=== PATIENT | male | born 1965 | race Caucasian/White ===

== ENCOUNTER 2017-01-25 06:13 | Day surgery (SDC) | payer OTHER ==
[~2017-01-25] VITALS: Ht 172.7 cm; Wt 60.3 kg
[2017-01-25] VITALS (18 sets, daily range): BP systolic 93–133; BP diastolic 54–68; PULSE 50–63; RESP 17–18; Ht 172.7 cm; Wt 60.3 kg
[~2017-01-25 06:13] MED LIST: TOBRAMYCIN/DEXAMETH 3.5 GM OPH OINT LEFT EYE ONE
[2017-01-25] MEDS ORDERED: CIPROFLOXACIN 0.3% 2.5 ML OPH OPER SCH (06:30)
[2017-01-25] MEDS ORDERED: LIDOCAINE 3.5% GEL TUBE OPER SCH (06:30)
[2017-01-25] MEDS ORDERED: TOBRAMYCIN/DEXAMETH 3.5 GM OPH OINT ONE (06:39)
[2017-01-25] MEDS ORDERED: LIDOCAINE 2%/EPI 30 ML INJ ONE (06:39)
[2017-01-25] MEDS ORDERED: BALANCED SALT SOLN 15 ML OPH IRRIG ONE (07:00)
[2017-01-25] MEDS ORDERED: ACETAMINOPHEN 1000 MG/100 ML IVPB ONE (07:00)
[2017-01-25] MEDS ORDERED: MITOMYCIN 5 MG INJ OP ONE (07:00)
[2017-01-25] MEDS ORDERED: LIDOCAINE 2%/EPI MPF (SDV) 20 ML VIAL INJ ONE (07:30)
[2017-01-25] MEDS ORDERED: MIDAZOLAM 1 MG/ML 2 ML INJ ONE (07:52)
[2017-01-25] MEDS ORDERED: OXYCODONE/ACETAMINOPHEN (5/325) TAB PO PRN ×2 (08:00)
[2017-01-25] MEDS ORDERED: HYDROmorphONE (0.2 MG/ML) 10ML SYG IV PRN ×3 (08:00)
[2017-01-25] MEDS ORDERED: ONDANSETRON 4 MG INJ IV PRN (08:00)
--- NOTE | 2017-01-25 08:39 | HP ---
DATE OF ADMISSION: 01/25/2017 HISTORY OF PRESENT ILLNESS: This is a 52-year-old gentleman who has been having a growth over the l eft eye pterygium which was removed in 05/2016 at another facility; however, it grew back and it has become more inflamed and it is irritating the patient with foreign body sensation and sometimes elly n and sensitivity to light. He requested to have surgery in order to improve this condition. PAST MEDICAL HISTORY: Nonsignificant. MEDICATIONS: None. ALLERGIES: NO KNOWN DRUG ALLERGIES. PAST SURGICAL HISTORY: Significant for the pterygium removal in the left eye. SOCIAL HISTORY: Significant for smoking 2 packs a day for 30+ years. REVIEW OF SYSTEMS: He denies any fever, chills, nausea, vomiting, diarrhea, constipation, chest elly n, weakness or numbness in the extremities. PHYSICAL EXAMINATION: GENERAL: He is a well-developed, well-nourished gentleman in no acute distress. HEENT: Normocephalic, atraumatic. Ear, nose throat within normal limits. Eyes: Best corrected vi sual acuity is 20/25 on the right, 20/30 in the left. The pupil examination is 4 mm, 2+ reactive to light, with no afferent pupillary defect. Extraocular muscles are intact. External examination wi thin normal limits except for the pterygium of the left eye, which is 2+ injected. The intraocular pressure is 15 on the right, 14 on the left. The funduscopic examination is essentially within norm al limits. NECK: Supple. No lymphadenopathy. Normal thyroid. RESPIRATORY: Clear to auscultation and percussion. HEART: Regular rate and rhythm. ABDOMEN: Soft, nontender, nondistended, positive bowel sounds present. EXTREMITIES: There is no cyanosis, clubbing or edema. NEUROLOGIC: Grossly intact. IMPRESSION: Pterygium of the left eye. RECOMMENDATION: The patient requested to have surgery. The pterygium removal with autograft which can include complications of infection, bleeding, loss of vision, loss of the eye, under anest hesia, need for second surgery, recurrence of the pterygium and ptosis globe perforation and glaucom a. Patient requests to have surgery in order to improve this condition. Dictated By: PHILIP REDDY/CHRISTIAN Conf#: [id number] [facility] [place]#: [id number]
[2017-01-25] MEDS ORDERED: TOBRAMYCIN/DEXAMETH 3.5 GM OPH OINT OPER ONE (08:43)
[2017-01-25] MEDS ORDERED: DEXAMETHASONE 4 MG/ML 1 ML INJ INJ ONE (08:50)
[2017-01-25] MEDS ORDERED: DEXAMETHASONE 4 MG/ML 1 ML INJ ONE (08:50)
--- NOTE | 2017-01-25 09:18 | SIPON ---
Date/Time of Note Date/Time of Note DATE: 01/25/17 TIME: 09:13 Operative Report Preoperative Diagnosis recurrent pterygium left eye Postoperative Diagnosis recurrent pterygium left eye Operation/Procedure Performed pterygium removal with autograft left eye Surgeon see signature line material assistant none Anesthesia: MAC Estimated blood loss: minimal Transfusion Required none Specimen none Grafts/Implants none Complications none PHILIP RUSSO MD Jan 25, 2017 09:18
--- NOTE | 2017-01-25 09:18 | SIPON ---
Date/Time of Note Date/Time of Note DATE: 01/25/17 TIME: 09:13 Operative Report Preoperative Diagnosis recurrent pterygium left eye Postoperative Diagnosis recurrent pterygium left eye Operation/Procedure Performed pterygium removal with autograft left eye Surgeon see signature line legal document assistant none Anesthesia: MAC Estimated blood loss: minimal Transfusion Required none Specimen none Grafts/Implants none Complications none PHILIP RUSSO MD Jan 25, 2017 09:18
--- NOTE | 2017-01-25 09:18 | SIPON ---
Date/Time of Note Date/Time of Note DATE: 01/25/17 TIME: 09:13 Operative Report Preoperative Diagnosis recurrent pterygium left eye Postoperative Diagnosis recurrent pterygium left eye Operation/Procedure Performed pterygium removal with autograft left eye Surgeon see signature line marketing director assisted living none Anesthesia: MAC Estimated blood loss: minimal Transfusion Required none Specimen none Grafts/Implants none Complications none PHILIP RUSSO MD Jan 25, 2017 09:18
--- NOTE | 2017-01-25 09:23 | PDOCDIS ---
Discharge Instructions CONDITION Patient Condition: Good FOLLOW UP/APPOINTMENTS Follow-up Plan return to the office tomorrow morning PHILIP RUSSO MD Jan 25, 2017 09:23
--- NOTE | 2017-01-25 09:23 | PDOCDIS ---
Discharge Instructions CONDITION Patient Condition: Good FOLLOW UP/APPOINTMENTS Follow-up Plan return to the office tomorrow morning PHILIP RUSSO MD Jan 25, 2017 09:23
--- NOTE | 2017-01-25 09:23 | PDOCDIS ---
Discharge Instructions CONDITION Patient Condition: Good FOLLOW UP/APPOINTMENTS Follow-up Plan return to the office tomorrow morning PHILIP RUSSO MD Jan 25, 2017 09:23
--- NOTE | 2017-01-25 09:30 | OPR ---
DATE OF OPERATION: 01/25/2017 PREOPERATIVE DIAGNOSIS: Recurrent pterygium of the left eye. POSTOPERATIVE DIAGNOSIS: Recurrent pterygium of the left eye. INTERACTIVE ART DIRECTOR: None. PROCEDURE: Pterygium removal with autograft, left eye. COMPLICATIONS: None. ESTIMATED BLOOD LOSS: Less than 1 mL. ANESTHESIA: Two percent lidocaine with epinephrine subconjunctival. COMPLICATIONS: None. INDICATION: This is a 52-year-old gentleman who has been having a growth over the left eye. He is status post pterygium removal 05/2016, but it has reoccurred and he requests surgery in order to improve this condition. It has become inflamed and it is irritating. PROCEDURE: The patient was taken to the operating room in stable condition, was placed and the heart and lung were monitored throughout the whole case. Next, wire lid speculum was placed in conjunctival fornices and then 2% lidocaine with epinephrine was injected underneath the subconjunctival area of the pterygium. Then, the pterygium was lifted off with the [address] [place] blade and off the sclerae and hemostasis was achieved with cautery. Next, the pterygium head was removed. Mitomycin was applied, a 0.3 mg per mL concentration for 30 seconds. The nas bur was used to smooth out the corneal surface. The area was measured to be about 10 mm x 6 mm and an autograft was measured with the calipers superotemporally and the area was marked and the graft was removed with Vannas scissors and it was brought over to the bare sclera and was attached to the conjunctiva with 8-0 Vicryl suture. Twelve stitches were placed and the graft seemed to be in the perfect position. A subconjunctival injection of Decadron was given inferiorly and the topical TobraDex was placed on to the eye. The eye was patched and a shield placed over it. The patient tolerated the procedure well and there were no complications. The patient was taken to the recovery room in stable condition. Dictated By: PHILIP REDDY/CHRISTIAN Conf#: [id number] DID#: [id number] [email or web address]
--- NOTE | 2017-01-25 09:30 | OPR ---
DATE OF OPERATION: 01/25/2017 PREOPERATIVE DIAGNOSIS: Recurrent pterygium of the left eye. POSTOPERATIVE DIAGNOSIS: Recurrent pterygium of the left eye. YARD SWITCH OPERATOR: None. PROCEDURE: Pterygium removal with autograft, left eye. COMPLICATIONS: None. ESTIMATED BLOOD LOSS: Less than 1 mL. ANESTHESIA: Two percent lidocaine with epinephrine subconjunctival. COMPLICATIONS: None. INDICATION: This is a 52-year-old gentleman who has been having a growth over the left eye. He is status post pterygium removal 05/2016, but it has reoccurred and he requests surgery in order to improve this condition. It has become inflamed and it is irritating. PROCEDURE: The patient was taken to the operating room in stable condition, was placed and the heart and lung were monitored throughout the whole case. Next, wire lid speculum was placed in conjunctival fornices and then 2% lidocaine with epinephrine was injected underneath the subconjunctival area of the pterygium. Then, the pterygium was lifted off with the [address] [place] blade and off the sclerae and hemostasis was achieved with cautery. Next, the pterygium head was removed. Mitomycin was applied, a 0.3 mg per mL concentration for 30 seconds. The nas bur was used to smooth out the corneal surface. The area was measured to be about 10 mm x 6 mm and an autograft was measured with the calipers superotemporally and the area was marked and the graft was removed with Vannas scissors and it was brought over to the bare sclera and was attached to the conjunctiva with 8-0 Vicryl suture. Twelve stitches were placed and the graft seemed to be in the perfect position. A subconjunctival injection of Decadron was given inferiorly and the topical TobraDex was placed on to the eye. The eye was patched and a shield placed over it. The patient tolerated the procedure well and there were no complications. The patient was taken to the recovery room in stable condition. Dictated By: PHILIP REDDY/CHRISTIAN Conf#: [id number] DID#: [id number] MTDJonny
== END 2017-01-25 10:35 | disposition home or self-care (01) ==
LOC: SDS 06:13
PROVIDERS: ATTEND Ophthalmology
DX: H11.062 Recurrent pterygium of left eye (principal); Z87.891 Personal history of nicotine dependence
CPT/HCPCS: 65426; J0131; J1100; J2250; J9280; Z7512; Z7610